=== PATIENT | male | born 1985 | race Caucasian/White ===

== ENCOUNTER 2023-07-27 19:36 | Emergency (ER) | payer MEDICAID ==
[~2023-07-27] VITALS: Ht 170.2 cm; Wt 72.7 kg
[2023-07-27 19:45] VITALS: TEMP 97.6
[2023-07-27] MEDS ORDERED: acetaminophen 325mg tablet PO ONE ×2 (23:00→23:20)
[2023-07-27 23:15] VITALS: BP 120/74; PULSE 89; RESP 14; O2SAT 98
--- NOTE | 2023-07-27 23:18 | NUR ---
Spoke with regarding stocked dosage of tylenol, 975mg given - duplicate order non-admined.
== END 2023-07-27 23:26 ==
LOC: ER 19:37
DX: S29.9XXA Unspecified injury of thorax, initial encounter (principal); X58.XXXA Exposure to other specified factors, initial encounter; Y93.89 Activity, other specified; Y92.89 Other specified places as the place of occurrence of the external cause; Y99.8 Other external cause status
CPT/HCPCS: 70450; 71046; 99284